=== PATIENT | male | born 1965 ===

== ENCOUNTER 2018-06-23 14:08 | Outpatient (CLI) | payer OTHER ==
[~2018-06-23 14:08] MED LIST: CATAFLAM50 MG PO; NABUMETONE500 MG PO; PERCOCET 5/3251 TAB PO
== END 2018-06-23 14:15 | disposition home or self-care (01) ==
LOC: RAD 14:08
DX: M25.561 Pain in right knee (principal); M25.562 Pain in left knee

== ENCOUNTER 2019-06-28 16:12 | Outpatient (CLI) | payer OTHER | END 2019-06-28 16:49 | disposition home or self-care (01) | LOC: RAD 16:12 | DX: M25.561 Pain in right knee (principal); M25.562 Pain in left knee ==